=== PATIENT | male | born 1955 | race Caucasian/White ===

== ENCOUNTER 2019-04-11 10:39 | Observation (INO) | payer OTHER ==
[~2019-04-11] VITALS: Ht 182.9 cm; Wt 72.7 kg
[~2019-04-11 10:39] MED LIST: Augmentin 875-1 EACH PO
[2019-04-11 11:07] LABS: BASOPHILS ABSOLUTE AUTO 0.05 K/mm3 (0.00-0.23); BASOPHILS PERCENT AUTO 1 % (0-2); EOSINOPHILS ABSOLUTE AUTO 0.06 K/mm3 (0.00-0.68); EOSINOPHILS PERCENT AUTO 1 % (0-6); Hematocrit 43.7 % (37.0-53.0); Hemoglobin 14.5 g/dL (13.5-17.5); IMMATURE GRAN ABSOLUTE AUTO 0.02 K/mm3 (0.00-0.10); IMMATURE GRAN PERCENT AUTO 0 % (0-1); LYMPHOCYTES ABSOLUTE AUTO 0.88 K/mm3 (0.84-5.20); LYMPHOCYTES PERCENT AUTO 12 % (21-46); MONOCYTES PERCENT AUTO 16 % (4-13); Mean Corpuscular HGB 28.9 pg (26.0-34.0); Mean Corpuscular HGB Conc 33.2 g/dL (31.5-36.5); Mean Corpuscular Volume 87 fL (80-100); Mean Platelet Volume 9.6 fL (9.1-12.4); NEUTROPHILS ABSOLUTE AUTO 5.13 K/mm3 (1.96-9.15); NEUTROPHILS PERCENT AUTO 70 % (41-73); Platelet Count 150 K/mm3 (150-400); RDW Coefficient Variation 13.5 % (11.7-14.2); RDW Standard Deviation 43.4 fL (35.1-46.3); Red Blood Cell Count 5.02 M/mm3 (4.30-5.90); White Blood Cell Count 7.34 K/mm3 (4.00-11.30)
[2019-04-11 11:23] LABS: Alanine Aminotransfer (ALT/SGP 74 U/L (12-78); Albumin, Blood 3.2 g/dL (3.4-5.0); Albumin/Globulin Ratio 0.8 (0.8-1.8); Alk Phos 110 U/L (50-136); Anion Gap 7 mmol/L (6-16); Aspartate Aminotrans (AST/SGOT 45 U/L (12-37); Bilirubin, Total 0.6 mg/dL (0.1-1.0); Blood Urea Nitrogen 11 mg/dL (8-24); Bun/Creatinine Ratio 13.3 (12.0-20.0); CO2, Blood 27 mmol/L (21-32); Calcium, Blood 8.4 mg/dL (8.5-10.1); Chloride, Blood 102 mmol/L (98-108); Creatinine, Blood 0.83 mg/dL (0.60-1.20); Globulin, Blood 3.8 g/dL (2.2-4.0); Glomerular Filtration Rate >60 (60-); Glucose, Blood 88 mg/dL (70-99); Sodium, Blood 136 mmol/L (136-145); Troponin I 0.026 ng/mL (0.000-0.040)
--- NOTE | 2019-04-11 19:42 | NUR ---
1745 RECEIVED PT TO 337 VIA W/C. PT IS A&O, AND ABLE TO TX SELF TO BED [facility] PER REPORT FROM CHERISE VELAZQUEZ, PT ADMITTED FOR DVT TO R CALF AND BL PE'S. PT WITH HX OF COPD. PT REPORTED SMOKING CIGARRETTES AND MARIJUANNA DAILY. LUNGS T/O VERY TIGHT AND DIMINISHED. PT HAS A FREQUENT, DRY HACKING COUGH. PER REPORT, PT HAS A HX OF LL LOBECTOMY. XARELTO AND PREDNISONE GIVEN IN ER. IVF'S INFUSING PER EMAR. PT TO ER WITH C/O INCREASED SOB AND WEAKNESS. REPORT GIVEN TO AGATA VELAZQUEZ.
--- NOTE | 2019-04-12 03:57 | NUR ---
SHIFT SUMMARY ASSUMED CARE OF PT AT 1900. PT IS A/O X4, INDEPENDENT IN ROOM, DENIES N/T IN EXTREMITIES. HEART SOUNDS REGULAR, WHEEZES IN LUNG SOUNDS, DENIES SOB/ CP AT THIE TIME. PT IS VERY INVOLVED IN HIS CARE AND ASKS LOTS OF QUESTIONS, PT IS CONFUSED ABOUT SOME TEST RESULTS, SUCH WHETHER OR NOT HE ACTUALLY HAS A PE OR NOT. PT DID NOT SLEEP AT ALL DURING THE NIGHT, PT STATED THAT HE NORMALLY STAYS UP LATE AT NIGHT. PT CONTINUED TO HAVE A NONPRODUCTIVE COUGH DURING THE NIGHT. CALL LIGHT IN REACH, BED IN LOWEST POSITION, WILL CONTINUE TO MONITOR UNTIL DAYSHIFT NURSE ARRIVES.
[2019-04-12 06:02] LABS: BASOPHILS ABSOLUTE AUTO 0.02 K/mm3 (0.00-0.23); BASOPHILS PERCENT AUTO 0 % (0-2); EOSINOPHILS PERCENT AUTO 0 % (0-6); Hematocrit 42.8 % (37.0-53.0); Hemoglobin 14.4 g/dL (13.5-17.5); IMMATURE GRAN ABSOLUTE AUTO 0.03 K/mm3 (0.00-0.10); IMMATURE GRAN PERCENT AUTO 1 % (0-1); LYMPHOCYTES ABSOLUTE AUTO 0.75 K/mm3 (0.84-5.20); LYMPHOCYTES PERCENT AUTO 12 % (21-46); MONOCYTES ABSOLUTE AUTO 0.74 K/mm3 (0.16-1.47); MONOCYTES PERCENT AUTO 12 % (4-13); Mean Corpuscular HGB Conc 33.6 g/dL (31.5-36.5); Mean Corpuscular Volume 86 fL (80-100); Mean Platelet Volume 9.6 fL (9.1-12.4); NEUTROPHILS ABSOLUTE AUTO 4.68 K/mm3 (1.96-9.15); NEUTROPHILS PERCENT AUTO 75 % (41-73); Platelet Count 169 K/mm3 (150-400); RDW Coefficient Variation 13.5 % (11.7-14.2); RDW Standard Deviation 43.2 fL (35.1-46.3); Red Blood Cell Count 4.96 M/mm3 (4.30-5.90); White Blood Cell Count 6.22 K/mm3 (4.00-11.30)
[2019-04-12 06:21] LABS: International Normalized Ratio 1.12; Prothrombin Time Results 11.9 Sec (9.7-11.5)
[2019-04-12 06:46] LABS: Alanine Aminotransfer (ALT/SGP 63 U/L (12-78); Albumin, Blood 3.1 g/dL (3.4-5.0); Albumin/Globulin Ratio 0.8 (0.8-1.8); Alk Phos 100 U/L (50-136); Anion Gap 10 mmol/L (6-16); Aspartate Aminotrans (AST/SGOT 32 U/L (12-37); Bilirubin, Total 0.5 mg/dL (0.1-1.0); Blood Urea Nitrogen 11 mg/dL (8-24); Bun/Creatinine Ratio 14.1 (12.0-20.0); CO2, Blood 26 mmol/L (21-32); Calcium, Blood 8.7 mg/dL (8.5-10.1); Chloride, Blood 102 mmol/L (98-108); Creatinine, Blood 0.78 mg/dL (0.60-1.20); Glomerular Filtration Rate >60 (60-); Glucose, Blood 98 mg/dL (70-99); Sodium, Blood 138 mmol/L (136-145); Total Protein, Blood 7.1 g/dL (6.4-8.2); Troponin I <0.015 ng/mL (0.000-0.040)
[2019-04-12] MEDS ORDERED: ALBU90OI INH (13:26)
[2019-04-12] MEDS ORDERED: NICO21TP TOP (13:27)
[2019-04-12] MEDS ORDERED: PRED20 PO (13:28)
[2019-04-12] MEDS ORDERED: XARELTO15 MG PO (13:29)
[2019-04-12] MEDS ORDERED: XARELTO20 MG PO (13:31)
--- NOTE | 2019-04-12 14:31 | NUR ---
AFTER A COUPLE OF COMMUNICATIONS WITH [facility], THEY SAY THE FREE 20 DAY COUPON IS PROCESSING THROUGH AND A PCP WILL NEED TO PRESCRIBE AFTER THAT AND A PREAUTHORIZATION WILL BE REQUIRED. NO OTHER CHANGES.
--- NOTE | 2019-04-12 16:30 | NUR ---
DISCHARGED TO HOME AT 1620 WITH INSTRUCTIONS, XARELTO COUPON AND BELONGINGS. A DOSE OF XARELTO WAS GIVEN PRIOR TO DC INSTRUCTED BY . HE KNOWS TO START HIS XARELTO IN THE MORNING AND TO TAKE DOSES 12 HRS APART. NO CP OR SOB.
== END 2019-04-12 16:20 | disposition home or self-care (01) ==
LOC: ER 10:39 → MEDS 10:40
PROVIDERS: Emergency Medicine; Nurse Practitioner Acute Care; ADMIT Internal Medicine
DX: I26.99 Other pulmonary embolism without acute cor pulmonale (principal); I82.402 Acute embolism and thrombosis of unspecified deep veins of left lower extremity; J44.1 Chronic obstructive pulmonary disease with (acute) exacerbation; Z87.891 Personal history of nicotine dependence; Z88.1 Allergy status to other antibiotic agents; Z88.8 Allergy status to other drugs, medicaments and biological substances
CPT/HCPCS: 36415; 71045; 71260; 80053; 83880; 84484; 85025; 85610; 93005; 93010; 93971; 94640; 94760; 96361; 96374-59; 99285-25; A9270; G0378; J7030; J7512; Q9967

== ENCOUNTER 2019-04-26 15:38 | Inpatient (IN) | payer OTHER ==
[~2019-04-26] VITALS: Ht 180.3 cm; Wt 75.8 kg
[~2019-04-26 15:38] MED LIST changes: +ALBU90OI INH; +NICO21TP TOP; +PRED20 PO; +XARELTO15 MG PO; +XARELTO20 MG PO
[2019-04-26 16:08] LABS: PCO2 Arterial 52.3 mmHg (35-45); PO2 Arterial 126 mmHg (80-100)
[2019-04-26 16:13] LABS: BASOPHILS ABSOLUTE AUTO 0.05 K/mm3 (0.00-0.23); BASOPHILS PERCENT AUTO 0 % (0-2); EOSINOPHILS ABSOLUTE AUTO 0.24 K/mm3 (0.00-0.68); EOSINOPHILS PERCENT AUTO 2 % (0-6); Hematocrit 44.5 % (37.0-53.0); Hemoglobin 14.6 g/dL (13.5-17.5); IMMATURE GRAN ABSOLUTE AUTO 0.04 K/mm3 (0.00-0.10); IMMATURE GRAN PERCENT AUTO 0 % (0-1); LYMPHOCYTES PERCENT AUTO 11 % (21-46); MONOCYTES ABSOLUTE AUTO 1.24 K/mm3 (0.16-1.47); MONOCYTES PERCENT AUTO 11 % (4-13); Mean Corpuscular HGB 28.8 pg (26.0-34.0); Mean Corpuscular HGB Conc 32.8 g/dL (31.5-36.5); Mean Corpuscular Volume 88 fL (80-100); Mean Platelet Volume 9.9 fL (9.1-12.4); NEUTROPHILS ABSOLUTE AUTO 8.85 K/mm3 (1.96-9.15); NEUTROPHILS PERCENT AUTO 76 % (41-73); Platelet Count 242 K/mm3 (150-400); RDW Coefficient Variation 14.4 % (11.7-14.2); RDW Standard Deviation 46.2 fL (35.1-46.3); Red Blood Cell Count 5.07 M/mm3 (4.30-5.90); White Blood Cell Count 11.72 K/mm3 (4.00-11.30)
[2019-04-26 16:27] LABS: International Normalized Ratio 1.11; Prothrombin Time Results 11.8 Sec (9.7-11.5)
[2019-04-26 16:37] LABS: Anion Gap 4 mmol/L (6-16); Blood Urea Nitrogen 14 mg/dL (8-24); Bun/Creatinine Ratio 24.6 (12.0-20.0); CO2, Blood 25 mmol/L (21-32); Calcium, Blood 8.7 mg/dL (8.5-10.1); Chloride, Blood 105 mmol/L (98-108); Creatinine, Blood 0.57 mg/dL (0.60-1.20); Glomerular Filtration Rate >60 (60-); Glucose, Blood 105 mg/dL (70-99); Potassium, Blood 3.9 mmol/L (3.5-5.5); Sodium, Blood 134 mmol/L (136-145)
[2019-04-26 16:38] LABS: Influenza A Negative (NEGATIVE); Influenza B Negative (NEGATIVE)
[2019-04-26 16:48] LABS: Troponin I <0.015 ng/mL (0.000-0.040)
[2019-04-26] MEDS ORDERED: Prednisone20 MG PO (18:01)
[2019-04-26] MEDS ORDERED: AZIT250 PO (18:01)
[2019-04-26] MEDS ORDERED: FLUT1DIS5 INH (18:01)
[2019-04-26] MEDS ORDERED: ALBU90OI INH (18:01)
[2019-04-26] MEDS ORDERED: AZIT500 PO (19:46)
[2019-04-26] MEDS ORDERED: PRED20 PO (19:53)
[2019-04-26 20:45] LABS: PCO2 Arterial 84.1 mmHg (35-45); PO2 Arterial 453 mmHg (80-100); pH Blood Arterial 7.09 (7.35-7.45)
[2019-04-26 22:10] LABS: Adenovirus Not Detected (NOT DETECT); Bordetella pertussis Not Detected (NOT DETECT); Chlamydophila pneumoniae Not Detected (NOT DETECT); Coronavirus 229E Not Detected (NOT DETECT); Coronavirus HKU1 Not Detected (NOT DETECT); Coronavirus NL63 Not Detected (NOT DETECT); Coronavirus OC43 Not Detected (NOT DETECT); Human Metapneumovirus Not Detected (NOT DETECT); Human Rhinovirus/Enterovirus Not Detected (NOT DETECT); Influenza A/2009-H1 Not Detected (NOT DETECT); Influenza A/H1 Not Detected (NOT DETECT); Influenza A/H3 Not Detected (NOT DETECT); Influenza B Not Detected (NOT DETECT); Mycoplasma pneumoniae Not Detected (NOT DETECT); Parainfluenza Virus 1 Not Detected (NOT DETECT); Parainfluenza Virus 2 Not Detected (NOT DETECT); Parainfluenza Virus 3 Not Detected (NOT DETECT); Parainfluenza Virus 4 Not Detected (NOT DETECT); Respiratory Syncytial Virus Detected (NOT DETECT)
--- NOTE | 2019-04-26 22:30 | NUR ---
PT ARRIVED TO ICU 12 FROM ER. ACCOMPANIED BY [employer] COACH. INTUBATED AND SEDATED WITH PROPOFOL AT 60MCG/KG/MIN. PT IS AGITATED WITH ANY MOVEMENT. STARTS COUGHING TO THE POINT THAT HIS FACE IS PURPLE/RED. WILL TRY FENTANYL IN CONJUNCTION. WILL BE STARTING HEPARIN PER PHARMACY. NS AT 100ML/HR.
[2019-04-26 23:11] LABS: Base Excess Venous -6.2 mmol/L; Bicarbonate Venous 19.2 mmol/L (24.0-30.0); PCO2 Venous 39.4 mmHg (38-42); PO2 Venous 38.4 mmHg (38-42); pH Blood Venous 7.31 (7.34-7.37)
--- NOTE | 2019-04-27 00:26 | NUR ---
CALLED DR. JIM DUE TO HAVING A DIFFICULT TIME SEDATING PT. ON 60MCG/KG/MIN OF PROPOFOL AND HAVE BEEN GIVING FENTANYL IVP WELL. PT WILL START COUGHING AND BECOMES RIGID. WHILE COUGHING HIS FACE TURNS RED/PURPLE. NEW ORDERS FOR PRECEDEX GTT. ALSO INFORMED HER OF VBG RESULTS.
[2019-04-27 04:33] LABS: Bicarbonate Venous 22.5 mmol/L (24.0-30.0); PCO2 Venous 50.7 mmHg (38-42); PO2 Venous 35.7 mmHg (38-42); pH Blood Venous 7.31 (7.34-7.37)
[2019-04-27 04:48] LABS: BASOPHILS ABSOLUTE AUTO 0.04 K/mm3 (0.00-0.23); BASOPHILS PERCENT AUTO 0 % (0-2); EOSINOPHILS ABSOLUTE AUTO 0.01 K/mm3 (0.00-0.68); EOSINOPHILS PERCENT AUTO 0 % (0-6); Hematocrit 38.9 % (37.0-53.0); Hemoglobin 12.5 g/dL (13.5-17.5); IMMATURE GRAN PERCENT AUTO 1 % (0-1); LYMPHOCYTES ABSOLUTE AUTO 0.06 K/mm3 (0.84-5.20); LYMPHOCYTES PERCENT AUTO 0 % (21-46); MONOCYTES ABSOLUTE AUTO 0.56 K/mm3 (0.16-1.47); MONOCYTES PERCENT AUTO 3 % (4-13); Mean Corpuscular HGB 28.6 pg (26.0-34.0); Mean Corpuscular HGB Conc 32.1 g/dL (31.5-36.5); Mean Corpuscular Volume 89 fL (80-100); Mean Platelet Volume 9.7 fL (9.1-12.4); NEUTROPHILS ABSOLUTE AUTO 17.37 K/mm3 (1.96-9.15); NEUTROPHILS PERCENT AUTO 96 % (41-73); Platelet Count 189 K/mm3 (150-400); RDW Coefficient Variation 14.5 % (11.7-14.2); RDW Standard Deviation 47.2 fL (35.1-46.3); Red Blood Cell Count 4.37 M/mm3 (4.30-5.90); White Blood Cell Count 18.14 K/mm3 (4.00-11.30)
[2019-04-27 05:10] LABS: Alanine Aminotransfer (ALT/SGP 79 U/L (12-78); Albumin, Blood 2.7 g/dL (3.4-5.0); Albumin/Globulin Ratio 0.7 (0.8-1.8); Alk Phos 88 U/L (50-136); Anion Gap 8 mmol/L (6-16); Aspartate Aminotrans (AST/SGOT 28 U/L (12-37); Bilirubin, Total 0.5 mg/dL (0.1-1.0); Blood Urea Nitrogen 16 mg/dL (8-24); Bun/Creatinine Ratio 17.5 (12.0-20.0); CO2, Blood 26 mmol/L (21-32); Calcium, Blood 8.1 mg/dL (8.5-10.1); Chloride, Blood 105 mmol/L (98-108); Creatinine, Blood 0.91 mg/dL (0.60-1.20); Globulin, Blood 3.8 g/dL (2.2-4.0); Glomerular Filtration Rate >60 (60-); Glucose, Blood 157 mg/dL (70-99); Potassium, Blood 4.4 mmol/L (3.5-5.5); Sodium, Blood 139 mmol/L (136-145); Total Protein, Blood 6.5 g/dL (6.4-8.2); Troponin I 0.379 ng/mL (0.000-0.040)
--- NOTE | 2019-04-27 05:45 | NUR ---
SUMMARY PT ADMITTED LAST NIGHT FROM ER. PT INTUBATED AND SEDATED. PROPOFOL AND PRECEDEX FOR SEDATION WITH FENTANYL IVP PRN. PT IS BETTER SEDATED WITH PRECEDEX. NO LONGER COUGHING SO HARD THAT HIS FACE TURNS PURPLE. SMALL AMT OF ZAMARRIPA THICK SECRETIONS FROM ETT. PT IS ON HEPARIN GTT THAT IS BEING MANAGED BY PHARMACY FOR INCREASED TROPONIN. HEPARIN DECREASED TO 14.5 UNITS/KG/HR THIS AM. NOTICED THAT PT'S URINE IS TURNING RED THIS AM. H&H STABLE WILL MONITOR.
--- NOTE | 2019-04-27 07:56 | NUR ---
ASSUMED CARE PT. SEDATED AND INTUBATED. VENT SETTINGS OF AC 16, 450, 7, 40%. PT. BECOMES AGGITATED WITH STIMULATION. PRECEDEX GTT AT 0.7MCG/KG/MIN AND PROPFOL AT 35MCG/KG/MIN. NO OG TUBE IN PLACE AT THIS TIME, PER TALENT ADVISOR RN POSSIBLE EXTUBATION THIS AM, WILL VERIFY ORDER FOR PLACEMENT OF OG TUBE WITH . PT. HAS MAROON COLORED URINE FROM OROZCO. PT. HAS EDEMA NOTED TO LEFT LE, DOPPLER PULSES NOTED. PT. PALE IN COLOR. PT HADDAD. BILAT WRIST RESTRAINTS IN PLACE.
--- NOTE | 2019-04-27 09:30 | NUR ---
DR. ARAGON AT BEDSIDE TO EVAL PT. SEDATION PLACED ON SB AND PT SWITCHED TO SPONT MODE ON VENT PS 5, 35%, PEEP 5. PLANS FOR EXTUBATION TODAY, AND NO PLACEMENT OF OG TUBE. PT. ABLE TO SQUEEZE HANDS TO COMMAND, AND REASSURES WITH VERBAL REDIRECTION. PRECEDEX GTT REMAINS ON PER DR. JIM AND WILL USE BIPAP NEEDED ONCE EXTUBATED.
--- NOTE | 2019-04-27 11:41 | NUR ---
PT EXTUBATED PT. CALM AND COOPERATIVE AT TIME OF EXTUBATION. PLACED ON 2LNC. BILAT WRIST RESTRAINTS REMOVED
--- NOTE | 2019-04-27 12:00 | NUR ---
PUBLIC RELATIONS OFFICER AT BEDSIDE.
--- NOTE | 2019-04-27 12:44 | NUR ---
Echocardiogram completed.
--- NOTE | 2019-04-27 12:46 | NUR ---
UPDATE PT. TOLERATING EXTUBATION WELL. CURRENTLY ON 2LNC. GOOD COUGH AND SWALLOW NOTED. PT. MED FOR NECK PAIN. PT. PRECEDEX AND PROPOFOL OFF AT TIME OF EXTUBATION. PT. ABLE TO HELP WITH REPOSITIONING FOR PRESSURE RELIEF. VSS.
--- NOTE | 2019-04-27 15:00 | NUR ---
BEDSIDE SWALLOW PT. ALERT AND ORIENTED. BED SIDE SWALLOW EVAL DONE AND DID VERY WELL. PROVIDED WITH JELLO AND PUDDING FOR SNACK, OKAY PER DR. ARAGON. PT. REMAINS ON 2LNC, SOME SOB WITH EXCERTION DURING REPOSITIONING.
--- NOTE | 2019-04-27 16:40 | NUR ---
BEDSIDE COMMODE PT UP TO BEDSIDE COMMODE WITH STAND BY ASSIST. TOLERATED WELL. SOME SOB REPORTED WITH ACTIVITY, NO BM AT THIS TIME. LINENS CHANGED AND PT ASSISTED BACK TO BED.
--- NOTE | 2019-04-27 17:00 | NUR ---
DR. SWAIN AT BEDSIDE TO EVAL REPEAT EKG DONE. PT CONTINUES TO DENY ANY CHEST PAIN/PRESSURE
--- NOTE | 2019-04-27 17:37 | NUR ---
HEPARIN GTT OFF PER DR. JIM
--- NOTE | 2019-04-27 17:43 | NUR ---
SHIFT SUMMARY PT. EXTUBATED THIS AM, HAS TOLERTED WELL. DIET ADVANCING TOLERATED. CONTINUES TO HAVE HARSH COUGH; NON PRODUCTIVE. PT. REMAINS ON 2LNC, SOB WITH EXCERTION NOTED. PT. DENIES ANY CHEST PAIN OR PRESSURE. VSS T/O SHIFT. PT. HEPARIN STOPPED AND ORAL ANTI COAG RESTARTED. OROZCO REMAINS IN PLACE, DRAINING RED FLUID TO GRAVITY. UP TO BEDSIDE COMMODE WITH STAND BY ASSIST. CALL LIGHT IN REACH. REPORT TO ONCOMING RN.
--- NOTE | 2019-04-27 19:05 | NUR ---
FLUTTER VALVE PROVIDED WITH EDUCATION
--- NOTE | 2019-04-27 21:35 | NUR ---
PT RESTING IN BED. PT IS A/O X4. C/O DISCOMFORT AT TAILBONE. CHECKED THE AREA DON'T SEE ANY BRUISING. GAVE TYLENOL PER PT REQUEST. PT REQUESTED TO HAVE OROZCO TAKEN OUT. HE FELT IF HE HAD TO VOID AND IT LEAKED AROUND CATHETER. D/C'D AND PT WAS ABLE TO IMMEDIATELY VOID USING URINAL. URINE IS RED AND THIN. THERE WAS A SMALL CLOT AT THE END OF OROZCO WHEN TAKEN OUT. PT WAS ABLE TO PERFORM OWN PERICARE. EDUCATED ABOUT BEING ON BLOOD THINNERS AND URINE BEING BLOODY AND THERES A CHANCE OF HAVING TO PLACE ANOTHER OROZCO IF IT COMES TO THAT. PT VERBALIZES UNDERSTANDING. ATTENDS PLACED FOR PT'S COMFORT. PT STOOD AT BEDSIDE WITHOUT DISTRESS AND WAS ABLE TO STRETCH. ON 2L NC. LS AUDIBLEY WHEEZY WHEN OOB. PT HAS HX OF LL LOBECTOMY. PT WAS CURIOUS ABOUT GETTING HIS TEETH LOOKED AT BY MD. HE IS WORRIED THEY MIGHT BE INFECTED AND CAUSING SOME ISSUES. PT STATES HE HAS A DENTIST SET UP BUT HAS NOT GONE YET. ENCOURAGED HIM TO DO THAT AND ALSO TALK WITH REGISTERED NURSE RENAL ABOUT RESOURCES IN THIS COMMUNITY. PT IS NOT FROM HERE AND HAS BEEN STAYING WITH SOME FRIENDS.
[2019-04-28 04:11] LABS: BASOPHILS ABSOLUTE AUTO 0.01 K/mm3 (0.00-0.23); BASOPHILS PERCENT AUTO 0 % (0-2); EOSINOPHILS PERCENT AUTO 0 % (0-6); Hematocrit 37.6 % (37.0-53.0); Hemoglobin 12.4 g/dL (13.5-17.5); IMMATURE GRAN ABSOLUTE AUTO 0.06 K/mm3 (0.00-0.10); IMMATURE GRAN PERCENT AUTO 0 % (0-1); LYMPHOCYTES ABSOLUTE AUTO 0.13 K/mm3 (0.84-5.20); LYMPHOCYTES PERCENT AUTO 1 % (21-46); MONOCYTES ABSOLUTE AUTO 0.34 K/mm3 (0.16-1.47); MONOCYTES PERCENT AUTO 3 % (4-13); Mean Corpuscular HGB 28.8 pg (26.0-34.0); Mean Corpuscular Volume 87 fL (80-100); Mean Platelet Volume 9.6 fL (9.1-12.4); NEUTROPHILS ABSOLUTE AUTO 13.05 K/mm3 (1.96-9.15); NEUTROPHILS PERCENT AUTO 96 % (41-73); Platelet Count 183 K/mm3 (150-400); RDW Coefficient Variation 14.6 % (11.7-14.2); RDW Standard Deviation 46.8 fL (35.1-46.3); Red Blood Cell Count 4.31 M/mm3 (4.30-5.90); White Blood Cell Count 13.59 K/mm3 (4.00-11.30)
[2019-04-28 04:32] LABS: Albumin, Blood 2.6 g/dL (3.4-5.0); Anion Gap 6 mmol/L (6-16); Blood Urea Nitrogen 13 mg/dL (8-24); Bun/Creatinine Ratio 18.4 (12.0-20.0); CO2, Blood 25 mmol/L (21-32); Calcium, Blood 8.4 mg/dL (8.5-10.1); Chloride, Blood 110 mmol/L (98-108); Creatinine, Blood 0.71 mg/dL (0.60-1.20); Glomerular Filtration Rate >60 (60-); Glucose, Blood 120 mg/dL (70-99); Phosphorus, Blood 2.3 mg/dL (2.5-4.9); Sodium, Blood 141 mmol/L (136-145)
--- NOTE | 2019-04-28 06:06 | NUR ---
SUMMARY PT DID WELL DURING THE NIGHT. HAS TAKEN NC OFF AND SPO2 IN THE 90'S. DOING WELL GETTING TO SIDE OF BED TO USE THE URINAL INDEP. STILL A LITTLE SOB ON EXERTION. URINE IS NO LONGER RED IT IS YELLOW NOW. NO SIGN OF DISTRESS. USING CALL LIGHT APPROPRIATELY.
--- NOTE | 2019-04-28 07:15 | NUR ---
BEGINNING OF SHIFT Assumed care of pt at 0700. Bedside report received from Amirah VELAZQUEZ. Pt A&O x 4. Repositions independently in bed. Pt on room air. SpO2 95%. SR per monitor - ST with activity. Pt in droplet isolation for RSV. Bed in lowest position. Call light in reach. Pt denies need at this time.
--- NOTE | 2019-04-28 08:30 | NUR ---
DR BENAVIDES IN TO SEE PT Provider states pt may be medical floor status without telemetry. Okay to discontinue IV fluids as pt is having good oral intake.
--- NOTE | 2019-04-28 15:10 | NUR ---
UPDATE Dr Sims in to see pt. States pt is okay for medical floor transfer. Pt remains on room air. Plan for pt to transfer to room 209.
--- NOTE | 2019-04-28 15:50 | NUR ---
TRANSFER TO SURG FLOOR PT ARRIVES VIA W/C. ALERT AND ORIENTED. PLEASANT. LUNGS CLEAR BUT DIM L LOWER BASE. REPORTS COUGH W/ YELLOW SPUTUM. SATS STABLE ON RA.
--- NOTE | 2019-04-29 03:47 | NUR ---
SHIFT SUMMARY AA0X4, VSS. PT HAS BEEN IND IN ROOM. DENIES SOB DURING SHIFT. COUGH STILL PRODUCTIVE. PT REPORTS SLOWING DOWN. TOLERATING PO WELL. PLAN IS TO DISCHARGE TODAY.
--- NOTE | 2019-04-29 06:55 | NUR ---
recvd report from previous shift RN Steven, pt sleeping in bed, bed in lowest position, bed rails up x 2, call light within reach
--- NOTE | 2019-04-29 09:07 | NUR ---
DR MAKAYLA XIAO
[2019-04-29] MEDS ORDERED: ATOR20 PO (12:46)
[2019-04-29] MEDS ORDERED: ASPI81CH PO (12:47)
--- NOTE | 2019-04-29 13:55 | NUR ---
provided pt with discharge teaching and instructions, prescriptions faxed to [facility] pharmacy in [place]. pt's belongings in bags, transported with pt via wheelchair. pt transferred to awaiting vehicle via wheelchair. pt has been educated/demonstrated on nebulizer and provided with equipment. peripheral IV removed WNL.
== END 2019-04-29 13:45 | disposition home or self-care (01) | DRG 208 ==
LOC: ER 15:38 → ICUW 21:26 → SURS 22:40 → ICUW 04-28 09:52 → SURS 04-28 15:48
PROVIDERS: Emergency Medicine; Internal Medicine; Internal Medicine Pulmonary Disease; Physician Assistant; ADMIT Internal Medicine
PROC: 5A1945Z Respiratory Ventilation, 24-96 Consecutive Hours (ICD-10-PCS; principal; 2019-04-26)
PROC: 0BH17EZ Insertion of Endotracheal Airway into Trachea, Via Natural or Artificial Opening (ICD-10-PCS; 2019-04-26)
DX: J96.21 Acute and chronic respiratory failure with hypoxia (principal); I21.A1 Myocardial infarction type 2; I26.99 Other pulmonary embolism without acute cor pulmonale; J44.1 Chronic obstructive pulmonary disease with (acute) exacerbation; J96.22 Acute and chronic respiratory failure with hypercapnia; B97.4 Respiratory syncytial virus as the cause of diseases classified elsewhere; F17.210 Nicotine dependence, cigarettes, uncomplicated; Z79.01 Long term (current) use of anticoagulants
CPT/HCPCS: 0099U; 31500; 31720; 36415; 36600; 51702; 70450; 70496; 70498; 71045; 71260; 80048; 80053; 80069; 82803; 83880; 84484; 85025; 85610; 85730; 87804; 90686; 93005; 93010; 93306; 94002; 94003; 94640; 94760; 96365-59; 96375-59; 96376-59; 99291-25; 99292; A9270; A9270-GY; C9113; J0330; J0696; J1644; J2060; J2250; J2704; J2930; J3010; J7030; J7512; Q9967

== ENCOUNTER 2019-06-25 15:25 | Emergency (ER) | payer OTHER ==
[~2019-06-25] VITALS: Ht 182.9 cm; Wt 75.3 kg
[~2019-06-25 15:25] MED LIST changes: +ASPI81CH PO; +ATOR20 PO; +AZIT250 PO; +AZIT500 PO; +FLUT1DIS5 INH; +Prednisone20 MG PO
[2019-06-25 16:11] LABS: BASOPHILS ABSOLUTE AUTO 0.06 K/mm3 (0.00-0.23); BASOPHILS PERCENT AUTO 1 % (0-2); EOSINOPHILS ABSOLUTE AUTO 0.79 K/mm3 (0.00-0.68); EOSINOPHILS PERCENT AUTO 9 % (0-6); Hematocrit 41.9 % (37.0-53.0); Hemoglobin 13.9 g/dL (13.5-17.5); IMMATURE GRAN ABSOLUTE AUTO 0.02 K/mm3 (0.00-0.10); IMMATURE GRAN PERCENT AUTO 0 % (0-1); LYMPHOCYTES ABSOLUTE AUTO 2.27 K/mm3 (0.84-5.20); LYMPHOCYTES PERCENT AUTO 26 % (21-46); MONOCYTES ABSOLUTE AUTO 0.96 K/mm3 (0.16-1.47); MONOCYTES PERCENT AUTO 11 % (4-13); Mean Corpuscular HGB 28.3 pg (26.0-34.0); Mean Corpuscular HGB Conc 33.2 g/dL (31.5-36.5); Mean Corpuscular Volume 85 fL (80-100); Mean Platelet Volume 9.8 fL (9.1-12.4); NEUTROPHILS ABSOLUTE AUTO 4.76 K/mm3 (1.96-9.15); NEUTROPHILS PERCENT AUTO 54 % (41-73); Platelet Count 186 K/mm3 (150-400); RDW Coefficient Variation 14.5 % (11.7-14.2); RDW Standard Deviation 45.2 fL (35.1-46.3); Red Blood Cell Count 4.91 M/mm3 (4.30-5.90); White Blood Cell Count 8.86 K/mm3 (4.00-11.30)
[2019-06-25 16:29] LABS: Alanine Aminotransfer (ALT/SGP 25 U/L (12-78); Albumin, Blood 3.4 g/dL (3.4-5.0); Alk Phos 88 U/L (50-136); Anion Gap 10 mmol/L (6-16); Aspartate Aminotrans (AST/SGOT 29 U/L (12-37); Bilirubin, Total 0.7 mg/dL (0.1-1.0); Blood Urea Nitrogen 20 mg/dL (8-24); Bun/Creatinine Ratio 25.7 (12.0-20.0); CO2, Blood 21 mmol/L (21-32); Calcium, Blood 8.3 mg/dL (8.5-10.1); Chloride, Blood 109 mmol/L (98-108); Creatinine, Blood 0.78 mg/dL (0.60-1.20); Globulin, Blood 3.4 g/dL (2.2-4.0); Glomerular Filtration Rate >60 (60-); Glucose, Blood 120 mg/dL (70-99); Potassium, Blood 3.9 mmol/L (3.5-5.5); Sodium, Blood 140 mmol/L (136-145); Total Protein, Blood 6.8 g/dL (6.4-8.2)
[2019-06-25 17:01] LABS: Base Excess Venous 1.5 mmol/L; Bicarbonate Venous 25.3 mmol/L (24.0-30.0); PCO2 Venous 44.6 mmHg (38-42); PO2 Venous 149 mmHg (38-42); pH Blood Venous 7.38 (7.34-7.37)
[2019-06-25] MEDS ORDERED: Prednisone20 MG PO (17:50)
== END 2019-06-25 18:21 | disposition home or self-care (01) ==
LOC: ER 15:25
PROVIDERS: Nurse Practitioner
DX: J44.1 Chronic obstructive pulmonary disease with (acute) exacerbation (principal); F17.200 Nicotine dependence, unspecified, uncomplicated; Z86.718 Personal history of other venous thrombosis and embolism; Z90.2 Acquired absence of lung [part of]; Z88.1 Allergy status to other antibiotic agents; Z88.8 Allergy status to other drugs, medicaments and biological substances; Z79.82 Long term (current) use of aspirin; Z79.899 Other long term (current) drug therapy
CPT/HCPCS: 71260; 80053; 82803; 84484; 85025; 93005; 93010; 96374-59; 96376-59; 99285-25; J2930; Q9967

== ENCOUNTER 2019-07-21 21:39 | Inpatient (IN) | payer OTHER ==
[~2019-07-21] VITALS: Ht 162.6 cm; Wt 81.8 kg
[2019-07-21 22:10] LABS: BASOPHILS ABSOLUTE AUTO 0.06 K/mm3 (0.00-0.23); BASOPHILS PERCENT AUTO 0 % (0-2); EOSINOPHILS ABSOLUTE AUTO 0.06 K/mm3 (0.00-0.68); EOSINOPHILS PERCENT AUTO 0 % (0-6); Hematocrit 44.5 % (37.0-53.0); Hemoglobin 14.7 g/dL (13.5-17.5); IMMATURE GRAN ABSOLUTE AUTO 0.12 K/mm3 (0.00-0.10); IMMATURE GRAN PERCENT AUTO 1 % (0-1); LYMPHOCYTES ABSOLUTE AUTO 0.59 K/mm3 (0.84-5.20); LYMPHOCYTES PERCENT AUTO 4 % (21-46); MONOCYTES ABSOLUTE AUTO 1.03 K/mm3 (0.16-1.47); MONOCYTES PERCENT AUTO 7 % (4-13); Mean Corpuscular HGB 27.7 pg (26.0-34.0); Mean Corpuscular Volume 84 fL (80-100); Mean Platelet Volume 9.2 fL (9.1-12.4); NEUTROPHILS ABSOLUTE AUTO 13.65 K/mm3 (1.96-9.15); NEUTROPHILS PERCENT AUTO 88 % (41-73); Platelet Count 242 K/mm3 (150-400); RDW Coefficient Variation 14.3 % (11.7-14.2); RDW Standard Deviation 43.8 fL (35.1-46.3); White Blood Cell Count 15.51 K/mm3 (4.00-11.30)
[2019-07-21 22:24] LABS: International Normalized Ratio 1.05; Prothrombin Time Results 11.2 Sec (9.7-11.5)
[2019-07-21 22:33] LABS: Alanine Aminotransfer (ALT/SGP 39 U/L (12-78); Albumin, Blood 3.5 g/dL (3.4-5.0); Albumin/Globulin Ratio 0.9 (0.8-1.8); Alk Phos 106 U/L (50-136); Anion Gap 3 mmol/L (6-16); Aspartate Aminotrans (AST/SGOT 27 U/L (12-37); Bilirubin, Total 0.6 mg/dL (0.1-1.0); Blood Urea Nitrogen 15 mg/dL (8-24); Bun/Creatinine Ratio 17.6 (12.0-20.0); CO2, Blood 30 mmol/L (21-32); Calcium, Blood 8.4 mg/dL (8.5-10.1); Chloride, Blood 103 mmol/L (98-108); Creatinine, Blood 0.85 mg/dL (0.60-1.20); Globulin, Blood 3.9 g/dL (2.2-4.0); Glomerular Filtration Rate >60 (60-); Glucose, Blood 98 mg/dL (70-99); Potassium, Blood 4.1 mmol/L (3.5-5.5); Sodium, Blood 136 mmol/L (136-145); Total Protein, Blood 7.4 g/dL (6.4-8.2); Troponin I <0.015 ng/mL (0.000-0.040)
[2019-07-21 22:59] LABS: Source, Urine Clean Catch
[2019-07-21 23:01] LABS: Appearance, Urine Clear (Clear); Bilirubin, Urine Neg (Neg); Blood, Urine Neg (Neg); Color, Urine Yellow (P-Yellow); Glucose Qualitative, Urine Neg (Neg); Ketones, Urine Neg (Neg); Leukocyte Esterase, Urine 2+ (Neg); Nitrite, Urine Neg (Neg); Protein, Urine Neg (Neg); Specific Gravity, Urine 1.005 (1.003-1.022); Urobilinogen, Urine NORM (Normal)
[2019-07-21 23:06] LABS: Red Blood Cells, Urine 0-2 /hpf (0-2)
[2019-07-21 23:07] LABS: Bacteria Mod /hpf; Squamous Epithelial Cells Not Seen /hpf (Few)
--- NOTE | 2019-07-22 02:08 | NUR ---
ARRIVAL PT ARRIVED TO UNIT VIA GURNEY. TRANSFERED SELF TO BED SBA. DENIES WEAKNESS OR SOB AT THIS TIME. DENIES NAUSEA AND PAIN ON ARRIVAL. PT CURRENTLY SITTING UP IN BED, AA0X4. ORIENTED TO UNIT, CALL LIGHT IN REACH. EDUCATION ON USE PROVIDED. WILL MONITOR PT FOR FEVERS OR ANY CHANGES.
[2019-07-22 02:40] LABS: U Amphetamine Screen Not Detected; U Barbituate Screen Not Detected; U Benzodiazapine Screen Not Detected; U Buprenorphine Screen Not Detected; U Cannabinoids Screen DETECTED; U Cocaine Screen Not Detected; U Methadone Screen Not Detected; U Methamphetamine Screen Not Detected; U Opiates Screen Not Detected; U Oxycodone Screen Not Detected; U Phencyclidine Screen Not Detected; U Propoxyphene Screen Not Detected
[2019-07-22 04:34] LABS: BASOPHILS ABSOLUTE AUTO 0.03 K/mm3 (0.00-0.23); BASOPHILS PERCENT AUTO 0 % (0-2); EOSINOPHILS PERCENT AUTO 0 % (0-6); Hematocrit 41.2 % (37.0-53.0); Hemoglobin 13.4 g/dL (13.5-17.5); IMMATURE GRAN ABSOLUTE AUTO 0.11 K/mm3 (0.00-0.10); IMMATURE GRAN PERCENT AUTO 1 % (0-1); LYMPHOCYTES ABSOLUTE AUTO 0.43 K/mm3 (0.84-5.20); LYMPHOCYTES PERCENT AUTO 3 % (21-46); MONOCYTES ABSOLUTE AUTO 0.44 K/mm3 (0.16-1.47); MONOCYTES PERCENT AUTO 3 % (4-13); Mean Corpuscular HGB 27.5 pg (26.0-34.0); Mean Corpuscular HGB Conc 32.5 g/dL (31.5-36.5); Mean Corpuscular Volume 84 fL (80-100); Mean Platelet Volume 9.5 fL (9.1-12.4); NEUTROPHILS ABSOLUTE AUTO 13.87 K/mm3 (1.96-9.15); NEUTROPHILS PERCENT AUTO 93 % (41-73); Platelet Count 197 K/mm3 (150-400); RDW Coefficient Variation 14.3 % (11.7-14.2); Red Blood Cell Count 4.88 M/mm3 (4.30-5.90); White Blood Cell Count 14.88 K/mm3 (4.00-11.30)
[2019-07-22 04:55] LABS: Alanine Aminotransfer (ALT/SGP 44 U/L (12-78); Albumin, Blood 2.9 g/dL (3.4-5.0); Albumin/Globulin Ratio 0.9 (0.8-1.8); Alk Phos 79 U/L (50-136); Anion Gap 4 mmol/L (6-16); Aspartate Aminotrans (AST/SGOT 35 U/L (12-37); Bilirubin, Total 0.7 mg/dL (0.1-1.0); Blood Urea Nitrogen 14 mg/dL (8-24); Bun/Creatinine Ratio 15.7 (12.0-20.0); CO2, Blood 27 mmol/L (21-32); Calcium, Blood 7.9 mg/dL (8.5-10.1); Chloride, Blood 106 mmol/L (98-108); Creatinine, Blood 0.89 mg/dL (0.60-1.20); Globulin, Blood 3.4 g/dL (2.2-4.0); Glomerular Filtration Rate >60 (60-); Glucose, Blood 100 mg/dL (70-99); Sodium, Blood 137 mmol/L (136-145); Total Protein, Blood 6.3 g/dL (6.4-8.2)
[2019-07-22 05:23] LABS: Adenovirus Not Detected (NOT DETECT); Bordetella pertussis Not Detected (NOT DETECT); Chlamydophila pneumoniae Not Detected (NOT DETECT); Coronavirus 229E Not Detected (NOT DETECT); Coronavirus HKU1 Not Detected (NOT DETECT); Coronavirus NL63 Not Detected (NOT DETECT); Coronavirus OC43 Not Detected (NOT DETECT); Human Metapneumovirus Not Detected (NOT DETECT); Human Rhinovirus/Enterovirus Not Detected (NOT DETECT); Influenza A/2009-H1 Not Detected (NOT DETECT); Influenza A/H1 Not Detected (NOT DETECT); Influenza A/H3 Not Detected (NOT DETECT); Influenza B Not Detected (NOT DETECT); Mycoplasma pneumoniae Not Detected (NOT DETECT); Parainfluenza Virus 1 Not Detected (NOT DETECT); Parainfluenza Virus 2 Not Detected (NOT DETECT); Parainfluenza Virus 3 Not Detected (NOT DETECT); Parainfluenza Virus 4 Not Detected (NOT DETECT); Respiratory Syncytial Virus Not Detected (NOT DETECT)
--- NOTE | 2019-07-22 05:32 | NUR ---
SHIFT SUMMARY PT RESTING IN BED SINCE ARRIVAL TO UNIT, PT IND IN ROOM. REPORTS LOOSE STOOLS STILL. TEMP DOWN TO 99.8 IN MORNING CHECK. TELE IN PLACE. FLUIDS INFUSING PER ORDERS. NO ACUTE CHANGES SINCE ARRIVAL TO UNIT.
--- NOTE | 2019-07-22 07:10 | NUR ---
recvd report from previous shift tate Harris. pt sitting up in bed, a/o x 4, pleasant/cooperative. bed in lowest position, bed rails up x 2, call light within reach. pt appears to be shivering and covered with blankets, will get temperature
--- NOTE | 2019-07-22 07:45 | NUR ---
temp 101.2, medicated per mar, encourage PO fluids
--- NOTE | 2019-07-22 11:41 | NUR ---
pt lying in bed, awake but states he is "drowsing". pt denies chills at this time, says he is "ok", a/o x 4
--- NOTE | 2019-07-22 17:24 | NUR ---
shift summary: vss with temperature at 101.4 this AM, 100.2 this afternoon, pt restarted on home medication, pt tolerated PO intake, urine output >800 ml. pt reports he is not shivering and cold now as he was this AM. pt remained a/o x 4, pleasant/cooperative, has been seen by the hospitalist this shift, restarted PO AC therapy this afternoon per apr. pt denie SOB, lungs remain course but SPO2 >90%.
--- NOTE | 2019-07-23 04:22 | NUR ---
SHIFT SUMMARY: HIGHEST TEMP THIS SHIFT 100.1. OTHER TEMPS INCLUDE 99.6 AND 98.6. PT GIVEN TYLENOL ONCE PER EMAR. ALL OTHER VS WNL. LUNG SOUNDS CLEAR THROUGHOUT, HOWEVER LUNGS DIMINISHED AND TIGHT. PT DENIES SOB. APPEARS TO BE DYSPNEIC WITH ACTIVITY. RECIEIVING BREATHING TX PER RT. PT C/O HEARTBURN THIS MORNING. SYMPTOMS ALLEVIATED WITH BROWN COW. PT RESTARTED ON METOPROLOL FOR BP AND HR CONTROL. TOLERATING PO INTAKE AND VOIDING WELL.
[2019-07-23 11:23] LABS: BASOPHILS ABSOLUTE AUTO 0.01 K/mm3 (0.00-0.23); BASOPHILS PERCENT AUTO 0 % (0-2); EOSINOPHILS ABSOLUTE AUTO 0.52 K/mm3 (0.00-0.68); EOSINOPHILS PERCENT AUTO 5 % (0-6); Hematocrit 39.7 % (37.0-53.0); Hemoglobin 12.9 g/dL (13.5-17.5); IMMATURE GRAN ABSOLUTE AUTO 0.05 K/mm3 (0.00-0.10); IMMATURE GRAN PERCENT AUTO 1 % (0-1); LYMPHOCYTES ABSOLUTE AUTO 0.45 K/mm3 (0.84-5.20); LYMPHOCYTES PERCENT AUTO 4 % (21-46); MONOCYTES ABSOLUTE AUTO 0.68 K/mm3 (0.16-1.47); MONOCYTES PERCENT AUTO 7 % (4-13); Mean Corpuscular HGB 27.7 pg (26.0-34.0); Mean Corpuscular HGB Conc 32.5 g/dL (31.5-36.5); Mean Corpuscular Volume 85 fL (80-100); Mean Platelet Volume 9.3 fL (9.1-12.4); NEUTROPHILS PERCENT AUTO 83 % (41-73); Platelet Count 189 K/mm3 (150-400); RDW Coefficient Variation 14.8 % (11.7-14.2); RDW Standard Deviation 46.6 fL (35.1-46.3); Red Blood Cell Count 4.66 M/mm3 (4.30-5.90); White Blood Cell Count 10.21 K/mm3 (4.00-11.30)
--- NOTE | 2019-07-23 14:33 | NUR ---
SHIFT SUMMARY A/O X4, VSS. PT ADMITTED FOR FEVER, TEMP HAS BEEN WNL, TOLERATES PO, VOIDING WELL, TCDB EDU&ENC. GI PANEL PENDING, WAITING ON BM FOR SAMPLE. WILL REPORT TO ONCOMING NOC RN.
--- NOTE | 2019-07-24 01:29 | NUR ---
ASSUMED CARE OF PT, REPORT REC FROM CAROLINE RICHARDS. PT SLEEPING IN BED, RESP E/U, NO DISTRESS NOTED. WILL CONT TO MONITOR AND TX PER ORDERS.
--- NOTE | 2019-07-24 06:33 | NUR ---
PT VSS T/O NIGHT. TYELNOL GIVEN THIS AM FOR RLE PAIN. PT REP NO CHANGES IN REDNESS/SWELLING OF RLE. PT REP PAIN WHEN FIRST BEARING WEIGHT, IS ABLE TO AMB W/FWW. ORDER FOR STOOL SAMPLE CANCELLED PER PROTOCOL ORDER >24 HRS AND PT HAS HAD NO BM. PT HAD NO C/O N/V. ABX CONT PER ORDERS. PT USING CALL LIGHT FOR ASSISTANCE, WILL CONT TO MONITOR UNTIL REP GIVEN TO ONCOMING RN.
[2019-07-24] MEDS ORDERED: CEPH500 PO (16:00)
== END 2019-07-24 16:20 | disposition home or self-care (01) | DRG 392 ==
LOC: ER 21:39 → SURS 21:40
PROVIDERS: Emergency Medicine; Internal Medicine; ADMIT Internal Medicine
DX: K52.9 Noninfective gastroenteritis and colitis, unspecified (principal); L03.115 Cellulitis of right lower limb; I82.502 Chronic embolism and thrombosis of unspecified deep veins of left lower extremity; J44.9 Chronic obstructive pulmonary disease, unspecified; E78.5 Hyperlipidemia, unspecified; Z86.711 Personal history of pulmonary embolism; R10.31 Right lower quadrant pain; Z90.2 Acquired absence of lung [part of]; F17.210 Nicotine dependence, cigarettes, uncomplicated
CPT/HCPCS: 0099U; 36415; 71045; 74177; 80053; 81001; 83605; 83880; 84484; 85025; 85610; 87040; 87086; 93005; 93010; 93971; 94640; 94760; 96365; 99285-25; A9270; J0690; J0696; J1650; J2405; J7030; Q9967; U0002

== ENCOUNTER 2021-02-25 22:08 | Emergency (ER) | payer MEDICARE, OTHER ==
[~2021-02-25] VITALS: Ht 182.9 cm; Wt 86.2 kg
[~2021-02-25 22:08] MED LIST changes: +CEPH500 PO
[2021-02-25 23:03] LABS: BASOPHILS ABSOLUTE AUTO 0.06 K/mm3 (0.00-0.23); BASOPHILS PERCENT AUTO 1 % (0-2); EOSINOPHILS ABSOLUTE AUTO 0.34 K/mm3 (0.00-0.68); EOSINOPHILS PERCENT AUTO 4 % (0-6); Hematocrit 43.9 % (37.0-53.0); IMMATURE GRAN ABSOLUTE AUTO 0.03 K/mm3 (0.00-0.10); IMMATURE GRAN PERCENT AUTO 0 % (0-1); LYMPHOCYTES ABSOLUTE AUTO 1.65 K/mm3 (0.84-5.20); LYMPHOCYTES PERCENT AUTO 19 % (21-46); MONOCYTES ABSOLUTE AUTO 0.88 K/mm3 (0.16-1.47); MONOCYTES PERCENT AUTO 10 % (4-13); Mean Corpuscular HGB 28.3 pg (26.0-34.0); Mean Corpuscular HGB Conc 34.2 g/dL (31.5-36.5); Mean Corpuscular Volume 83 fL (80-100); Mean Platelet Volume 9.4 fL (9.1-12.4); NEUTROPHILS ABSOLUTE AUTO 5.57 K/mm3 (1.96-9.15); NEUTROPHILS PERCENT AUTO 65 % (41-73); Platelet Count 222 K/mm3 (150-400); RDW Coefficient Variation 14.9 % (11.7-14.2); RDW Standard Deviation 45.5 fL (35.1-46.3); White Blood Cell Count 8.53 K/mm3 (4.00-11.30)
[2021-02-25 23:23] LABS: Alanine Aminotransfer (ALT/SGP 38 U/L (12-78); Albumin, Blood 3.8 g/dL (3.4-5.0); Alk Phos 125 U/L (50-136); Anion Gap 6 mmol/L (6-16); Aspartate Aminotrans (AST/SGOT 22 U/L (12-37); Bilirubin, Total 0.4 mg/dL (0.1-1.0); Blood Urea Nitrogen 18 mg/dL (8-24); Bun/Creatinine Ratio 21.8 (12.0-20.0); CO2, Blood 30 mmol/L (21-32); Calcium, Blood 8.7 mg/dL (8.5-10.1); Chloride, Blood 103 mmol/L (98-108); Creatinine, Blood 0.82 mg/dL (0.60-1.20); Globulin, Blood 3.8 g/dL (2.2-4.0); Glomerular Filtration Rate >60 (60-); Glucose, Blood 105 mg/dL (70-99); Sodium, Blood 139 mmol/L (136-145); Total Protein, Blood 7.6 g/dL (6.4-8.2); Troponin I <0.015 ng/mL (0.000-0.040)
[2021-02-26] MEDS ORDERED: PRED20 PO (17:23)
== END 2021-02-26 02:57 | disposition left against medical advice (07) ==
LOC: ER 22:08
PROVIDERS: Student in an Organized Health Care Education/Training Program
DX: Z53.21 Procedure and treatment not carried out due to patient leaving prior to being seen by health care provider (principal)
CPT/HCPCS: 80053; 84484; 85025; 93005; 93010

== ENCOUNTER 2021-02-26 15:23 | Emergency (ER) | payer MEDICARE, OTHER ==
[~2021-02-26] VITALS: Ht 182.9 cm; Wt 86.2 kg
[2021-02-26] MEDS ORDERED: PRED20 PO (17:23)
== END 2021-02-26 17:31 | disposition home or self-care (01) ==
LOC: ER 15:23
DX: J44.1 Chronic obstructive pulmonary disease with (acute) exacerbation (principal); E78.5 Hyperlipidemia, unspecified; Z86.711 Personal history of pulmonary embolism; Z88.0 Allergy status to penicillin; Z88.8 Allergy status to other drugs, medicaments and biological substances; Z79.899 Other long term (current) drug therapy; Z86.718 Personal history of other venous thrombosis and embolism
CPT/HCPCS: 71046; 94640; 99284-25; J7512

== ENCOUNTER 2022-06-20 22:34 | Emergency (ER) | payer MEDICARE, OTHER ==
[~2022-06-20] VITALS: Ht 182.9 cm; Wt 90.7 kg
[~2022-06-20 22:34] MED LIST changes: +Prednisone50 MG PO; +TOPROL XL50 M1 PO
[2022-06-20 22:45] VITALS: BP 136/101
[2022-06-21 00:11] LABS: BASOPHILS ABSOLUTE AUTO 0.05 K/mm3 (0.00-0.23); BASOPHILS PERCENT AUTO 0 % (0-2); EOSINOPHILS ABSOLUTE AUTO 0.02 K/mm3 (0.00-0.68); EOSINOPHILS PERCENT AUTO 0 % (0-6); Hematocrit 44.9 % (37.0-53.0); IMMATURE GRAN ABSOLUTE AUTO 0.05 K/mm3 (0.00-0.10); IMMATURE GRAN PERCENT AUTO 0 % (0-1); LYMPHOCYTES ABSOLUTE AUTO 1.29 K/mm3 (0.84-5.20); LYMPHOCYTES PERCENT AUTO 11 % (21-46); MONOCYTES ABSOLUTE AUTO 1.36 K/mm3 (0.16-1.47); MONOCYTES PERCENT AUTO 12 % (4-13); Mean Corpuscular HGB 27.1 pg (26.0-34.0); Mean Corpuscular HGB Conc 33.4 g/dL (31.5-36.5); Mean Corpuscular Volume 81 fL (80-100); Mean Platelet Volume 9.2 fL (9.1-12.4); NEUTROPHILS ABSOLUTE AUTO 8.66 K/mm3 (1.96-9.15); NEUTROPHILS PERCENT AUTO 76 % (41-73); Platelet Count 226 K/mm3 (150-400); RDW Standard Deviation 44.8 fL (35.1-46.3); Red Blood Cell Count 5.54 M/mm3 (4.30-5.90); White Blood Cell Count 11.43 K/mm3 (4.00-11.30)
[2022-06-21 00:37] LABS: Albumin, Blood 3.4 g/dL (3.4-5.0); Albumin/Globulin Ratio 0.8 (0.8-1.8); Bilirubin, Total 0.5 mg/dL (0.1-1.0); Bun/Creatinine Ratio 17.2 (12.0-20.0); Calcium, Blood 8.7 mg/dL (8.5-10.1); Creatinine, Blood 0.93 mg/dL (0.60-1.20); Globulin, Blood 4.4 g/dL (2.2-4.0); Potassium, Blood 4.3 mmol/L (3.5-5.5); Total Protein, Blood 7.8 g/dL (6.4-8.2)
== END 2022-06-21 02:42 | disposition home or self-care (01) ==
LOC: ER 22:34
PROVIDERS: Student in an Organized Health Care Education/Training Program
DX: K12.2 Cellulitis and abscess of mouth (principal); E78.5 Hyperlipidemia, unspecified; Z86.711 Personal history of pulmonary embolism; Z86.718 Personal history of other venous thrombosis and embolism; Z88.0 Allergy status to penicillin; Z88.1 Allergy status to other antibiotic agents; Z79.01 Long term (current) use of anticoagulants; Z79.899 Other long term (current) drug therapy
CPT/HCPCS: 10060; 70491; 80053; 85025; 99283-25; Q9967